=== PATIENT | male | born 1955 | race Caucasian/White ===

== ENCOUNTER 2018-08-11 08:00 | Inpatient (IN) | payer OTHER ==
--- NOTE | 2018-08-02 11:05 | HP ---
DATE OF ADMISSION: 08/11/2018 REASON FOR ADMISSION: Chronically incarcerated complex ventral hernia. BRIEF HISTORY: This is a 63-year-old gentleman with a long-standing history of having a complex, chronically incarcerated ventral hernia. The hernia has gotten much larger in the past three years and now he has discomfort in the area. He wishes to have this repaired. He has had no bouts of nausea or vomiting and no change in bowel habits. PAST MEDICAL HISTORY: Significant for hypertension, hypercholesterolemia, arthritic changes and psoriasis. PAST SURGICAL HISTORY: Bilateral knee replacements. ALLERGIES: None. SOCIAL HISTORY: The patient does not smoke. He drinks socially. MEDICATIONS: Rosuvastatin, losartan, HCTZ, omeprazole, aspirin and Symbicort. PHYSICAL EXAMINATION: Abdomen: Soft, nontender, nondistended. It is obese. The patient has a midline diastasis from the xiphoid to the umbilicus. He has a large, chronically incarcerated hernia in the midline. The actually defects are not truly appreciated due to their chronically incarcerated nature. The skin overlying the hernia is thinned at various points. IMPRESSION/PLAN: Complex chronically incarcerated ventral hernia. The patient and I had a long conversation regarding the various surgical approaches and since it has gotten bigger, I recommend that we repair this at this time. The patient will be scheduled for an open repair with mesh. We will do a posterior rectus approach and repair. At the time of surgery, if he requires component separation, this will be done as well. The indications, alternatives and complications of the procedure have been discussed. Questions have been answered. We will plan to obtain written consent on the day of surgery. Teresa BABB [id number] cc: José Antonio Maria M.D.
[2018-08-10 16:10] VITALS: BMI 33.9
[2018-08-11] MEDS ORDERED: TAMSULOSIN HCL 0.4 MG CAP ONE (08:37)
[2018-08-11] MEDS ORDERED: ceFAZolin SODIUM 1 GM VIAL ONE ×2 (08:37→09:48)
[2018-08-11] MEDS ORDERED: TAMSULOSIN HCL 0.4 MG CAP PO ONE (08:45)
[2018-08-11] MEDS ORDERED: ROPIVACAINE HCL 0.5% 30ML VIAL ONE (08:54)
[2018-08-11] MEDS ORDERED: MIDAZOLAM HCL 2 MG/2 ML SINGLE DOSE VIAL ONE ×2 (08:57)
[2018-08-11] MEDS ORDERED: PROPOFOL 20 ML ONE (09:46)
[2018-08-11] MEDS ORDERED: ONDANSETRON 4 MG/2 ML VIAL ONE (09:48)
[2018-08-11] MEDS ORDERED: DEXAMETHASONE SOD PHOSPHATE 4 MG/1 ML VIAL ONE (09:48)
[2018-08-11] MEDS ORDERED: LIDOCAINE HCL/PF 2% SDV 5ML VIAL ONE (09:48)
[2018-08-11] MEDS ORDERED: SODIUM CHLORIDE 0.9% P/F 10 ML VIAL IJ ONE (09:48)
[2018-08-11] MEDS ORDERED: KETAMINE HCL 200 MG/20 ML VIAL ONE (10:12)
[2018-08-11] MEDS ORDERED: ceFAZolin SODIUM 1 GM VIAL IVPB ONE (10:14)
[2018-08-11] MEDS ORDERED: ROCURONIUM BROMIDE 50 MG/5 ML VIAL ONE (10:39)
[2018-08-11] MEDS ORDERED: ePHEDrine SULFATE 50 MG/1 ML AMPULE ONE (10:56)
[2018-08-11] MEDS ORDERED: NEOSTIGMINE METHYLSULFATE 0.5 MG/1 ML - 10 ML MDV ONE (11:12)
[2018-08-11] MEDS ORDERED: KETOROLAC TROMETHAMINE 30 MG/1 ML VIAL ONE (11:13)
[2018-08-11] MEDS ORDERED: GLYCOPYRROLATE 0.2 MG/1 ML VIAL ONE (11:13)
[2018-08-11] MEDS ORDERED: MORPHINE SULFATE 8 MG/ML VIAL IVPB PRN (11:40)
[2018-08-11] MEDS ORDERED: ACETAMINOPHEN 325 MG TABLET (FP) PO PRN (11:40)
[2018-08-11] MEDS ORDERED: ONDANSETRON 4 MG/2 ML VIAL IVPUSH PRN (11:40)
[2018-08-11] MEDS ORDERED: SODIUM CHLORIDE 1,000 ML IV SCH (11:45)
--- NOTE | 2018-08-11 15:41 | OP ---
DATE OF OPERATION: 08/11/2018 PREOPERATIVE DIAGNOSIS: Chronically incarcerated complex ventral incisional hernia. POSTOPERATIVE DIAGNOSIS: Chronically incarcerated complex ventral incisional hernia. PROCEDURE: Open repair of complex chronically incarcerated ventral incisional hernia with mesh, bilateral component separation, partial omentectomy. SURGEON: Angel Mccray MD PSYCHOLOGY INSTRUCTOR: Paramjit Weiner DO ANESTHESIA: Miguelangel Powell DO, (general). ESTIMATED BLOOD LOSS: Minimal. SPECIMEN: Portion of omentum. INDICATION FOR PROCEDURE: This is a 63-year-old gentleman who has a large chronically incarcerated complex ventral hernia. It is causing him discomfort. He wishes to have this repaired. DESCRIPTION OF PROCEDURE: Patient identified and appropriately positioned on the operating room table. After placement on general anesthesia, the abdomen was prepped and draped in the usual sterile fashion with ChloraPrep. A midline incision was made and deepened through subcutaneous tissue. The hernia identified in the subcutaneous tissue and from the dermis with blunt dissection down to the level of the fascia. It was then circumferentially isolated. The sac opened and contained omentum. The sac was a slider. The omentum was serially clamped, divided, and tied with 3-0 Vicryl suture. The sac closed with a running 3-0 Vicryl suture. Next the fascia of the rectus muscle on the right identified. The posterior sheath divided. The muscle identified and off the posterior sheath bluntly out laterally. This was taken to the perforating vessels. Just medial to the perforating vessels, the fascia was scored with the cautery superiorly and inferiorly. The fascia was divided approximately 4 or 5 inches above the defect and inferiorly was done in a similar fashion. The myofascial separation allowed movement of the transversus medially without tension. This allowed also placement of the mesh beyond the rectus junction. Once the myofascial separation on the right was completed, a similar approach on the left was performed. The posterior rectus sheath divided sharply. The muscle off the sheath with blunt dissection up to the perforating vessels medially. The fascia just medial to the perforating vessels was scored with the cautery going north and south. Superiorly was taken approximately 4 to 5 inches above the defect and inferiorly was done in a similar fashion. Once the myofascial separation was completed on this side, the posterior sheath was then reapproximated with a running locking 3-0 Maxon suture. The sutures were placed in a 4:1 fashion. Next the defect measured and a large 20 x 20 piece of Versatex along with a 10 x 12 piece of ProGrip was used for the operative repair. The mesh was then sewn together in a hybrid fashion with interrupted 3-0 Vicryl sutures and paced in the retrorectus space and opened and fanned out to cover the defect. The mesh itself was anchored to the anterior abdominal wall with the AbsorbaTack. The mesh was irrigated. The operative field examined and noted to be hemostatic. The fascia overlying the mesh was then reapproximated by running No. 1 PDS suture. The subcutaneous space was irrigated, and a 10 flat RASHI placed and brought through a separate stab incision. The skin closed with yogi followed by Dermabond. The mesh used was Versatex 20 x 20, the anchoring system was AbsorbaTack. At the conclusion of this case, sponge and instrument counts were correct. ATTESTATION: A brief operative note was handwritten on the preprinted form. [facility] will be queried prior to giving any narcotics. Teresa BABB [id number] cc: MARCOS ANDRADE MD
[2018-08-11] MEDS: oxyCODONE HCL 5 MG TABLET PO PRN ×2 (18:09→22:24)
[2018-08-11] MEDS ORDERED: ROSUVASTATIN CA 10 MG TABLET (FP) ONE (21:22)
[2018-08-11] MEDS ORDERED: ROSUVASTATIN CA 20 MG TABLET (FP) PO SCH (22:00)
[2018-08-12] MEDS: oxyCODONE HCL 5 MG TABLET PO PRN ×2 (03:00→07:52)
[2018-08-12] MEDS ORDERED: PT OWN MED DRAWER 7, Y5N ONE (09:08)
[2018-08-12] MEDS ORDERED: HYDROCHLOROTHIAZIDE 25 MG TABLET (FP) PO SCH (10:00)
[2018-08-12] MEDS ORDERED: LOSARTAN POTASSIUM 50 MG TABLET (FP) PO SCH (10:00)
[2018-08-12] MEDS ORDERED: ENOXAPARIN NA (PORCINE) 40 MG/0.4 ML DISP.SYRIN SQ SCH (10:00)
[2018-08-12] MEDS ORDERED: ASPIRIN COATED 81 MG TABLET.EC PO SCH (10:00)
[2018-08-12] MEDS ORDERED: PANTOPRAZOLE SODIUM 40 MG VIAL IVPUSH SCH (10:00)
[2018-08-12 11:05] VITALS: BP 150/81; PULSE 80; TEMP 97.7
--- NOTE | 2018-08-12 12:59 | PATH ---
Surgical Pathology Report Patient Name: SHADE FOSTER Med. Rec. #: [id number] /Age/Gender: 1955 (Age: 63) / M Account: [id number] Location: [facility] MED/SURG Taken: 08/11/2018 Received: 08/11/2018 Reported: 08/12/2018 Physicians: Angel Mccray Specimen(s) Received PORTION OF OMENTUM AND HERNIA SAC Clinical History Complex ventral hernia Final Diagnosis HERNIA SAC AND OMENTUM, COMPLEX VENTRAL HERNIA REPAIR: FIBROMEMBRANOUS TISSUE COMPATIBLE WITH HERNIA SAC AND OMENTAL ADIPOSE TISSUE. Electronically Signed Stacia Gonzales M.D. Gross Description Received in formalin labeled "omentum and hernia sac," is a 6.0 x 4.5 x 2.4 cm pereira-brown portion of fibromembranous tissue with abundant attached fat, consistent with a hernia sac. Registered Nurse Ambulatory sections are submitted in one cassette. /08/11/201808/11/2018
--- NOTE | 2018-08-13 10:09 | DS ---
DATE OF ADMISSION: 08/11/2018 DATE OF DISCHARGE: 08/12/2018 ADMITTING DIAGNOSIS: Complex incarcerated ventral hernia with preexisting hypertension and hyperlipidemia. DISCHARGE DIAGNOSIS: Complex incarcerated ventral hernia with preexisting hypertension and hyperlipidemia. BRIEF HISTORY: This is a 63-year-old obese male who presented to [facility] for surgical management of a complex incarcerated ventral hernia. He underwent repair of this hernia utilizing component separation myofascial release and mesh. He also required a partial omentectomy due to the contents of the hernia. Please reference Dr. Angel Mccray's operative report for further details. He was admitted overnight. He has been able to void. At the time of discharge he is ambulating. He is tolerating a liquid diet. His Carroll-Beltrán drain has serosanguineous fluid within it. He will go home with his Carroll-Beltrán drain. He will go home on a regular diet. He will not lift anything more than 20 pounds. He will only sponge bathe. He will follow with Dr. Mccray next week to be evaluated for drain removal. He will empty his drain daily and record the amount or sooner if necessary. He will resume his usual home medications of aspirin, Nexium, hydrochlorothiazide, Cozaar, Crestor. He has a new prescription for Percocet which he will take as needed for pain. DO FRANCIS FAGAN/[id number]
== END 2018-08-12 11:55 | disposition home or self-care (01) | DRG 227 ==
LOC: JASUSAT 08:00 → JSAMEDAYSX 11:40 → J8W 15:25
PROVIDERS: ADMIT Obstetrics & Gynecology; ATTEND Surgery
PROC: 0DBU0ZZ Excision of Omentum, Open Approach (ICD-10-PCS; 2018-08-11)
PROC: 0WUF0JZ Supplement Abdominal Wall with Synthetic Substitute, Open Approach (ICD-10-PCS; principal; 2018-08-11 09:30)
DX: K43.0 Incisional hernia with obstruction, without gangrene (principal); I10 Essential (primary) hypertension; E78.00 Pure hypercholesterolemia, unspecified; L40.9 Psoriasis, unspecified; Z96.653 Presence of artificial knee joint, bilateral
CPT/HCPCS: 88305-TC; 94760; J7030

== ENCOUNTER 2021-03-09 12:30 | Emergency (ER) | payer OTHER ==
[2021-03-09 12:41] VITALS: TEMP 97.8; BMI 33.2
[2021-03-09] MEDS ORDERED: MECLIZINE HCL 25 MG TABLET (FP) PO ONE (13:23)
[2021-03-09] MEDS ORDERED: MECLIZINE HCL 25 MG TABLET (FP) ONE (13:26)
[2021-03-09 15:17] VITALS: BP 123/86; PULSE 79
== END 2021-03-09 15:40 | disposition home or self-care (01) ==
LOC: FER 12:30
DX: R42 Dizziness and giddiness (principal)
CPT/HCPCS: 70450-TC; 99284-25

== ENCOUNTER 2022-01-03 12:02 | Inpatient (IN) | payer OTHER ==
[2022-01-03] MEDS ORDERED: THIAMINE HCL 200 MG/2 ML VIAL IVPB ONE (13:13)
[2022-01-03] MEDS ORDERED: THIAMINE HCL 500 MG in SODIUM CHLORIDE 250 ML IVPB ONE (14:30)
[2022-01-03 14:49] LABS: ALBUMIN 3.7 g/dl (3.4-5.0); BLOOD UREA NITROGEN 14.1 mg/dL (7-18); CALCIUM 8.1 mg/dL (8.5-10.1); MAGNESIUM 1.8 mg/dL (1.8-2.4)
[2022-01-03 14:54] LABS: BILIRUBIN,TOTAL 1.2 mg/dL (0.2-1)
[2022-01-03 17:00] LABS: EOS % 4.1 % (0-4.5); HEMATOCRIT 35.2 % (35.4-49); HEMOGLOBIN 12.2 GM/dL (11.7-16.9); LYMPH % 17.6 % (8-40); MCH 33.9 pg (25.7-33.7); MCHC 34.7 g/dl (32.0-35.9); MEAN CELL VOLUME 97.7 fl (80-96); MEAN PLT VOLUME 7.8 fl (7.5-11.1); MONO % 11.5 % (3.8-10.2); NEUT % 65.8 % (42.8-82.8); PLATELET COUNT 156 10^3/uL (134-434); RDW 13.5 % (11.9-15.9); WHITE BLOOD COUNT 5.6 K/mm3 (4.0-10.0)
[2022-01-03] MEDS ORDERED: DEXTROSE 5%-0.45% SALINE 1,000 ML IV SCH (21:45)
[2022-01-03] MEDS ORDERED: ROSUVASTATIN CA 20 MG TABLET PO SCH (22:00)
[2022-01-03] MEDS ORDERED: ROSUVASTATIN CA 20 MG TABLET ONE (23:22)
[2022-01-03] MEDS ORDERED: chlordiazePOXIDE HCL 25 MG CAPSULE PO PRN (23:30)
[2022-01-04] MEDS: MUPIROCIN 2% TOPICAL OINTMENT FOR DECOLONIZATION NS SCH ×2 (01:45→09:35)
[2022-01-04] MEDS ORDERED: DEXTROSE 5%-0.45% SALINE 1,000 ML IV SCH (03:57)
[2022-01-04] MEDS ORDERED: ONDANSETRON 4 MG/2 ML VIAL IVPUSH PRN ×2 (06:11→18:09)
[2022-01-04 07:06] LABS: BASO % 0.9 % (0-2.0); EOS % 1.5 % (0-4.5); HEMATOCRIT 31.8 % (35.4-49); HEMOGLOBIN 11.4 GM/dL (11.7-16.9); LYMPH % 9.7 % (8-40); MCH 34.6 pg (25.7-33.7); MCHC 35.8 g/dl (32.0-35.9); MEAN CELL VOLUME 96.7 fl (80-96); MEAN PLT VOLUME 7.9 fl (7.5-11.1); MONO % 10.2 % (3.8-10.2); NEUT % 77.7 % (42.8-82.8); PLATELET COUNT 138 10^3/uL (134-434); RBC 3.29 M/mm3 (4.00-5.60); RDW 13.7 % (11.9-15.9); WHITE BLOOD COUNT 7.8 K/mm3 (4.0-10.0)
[2022-01-04 07:27] LABS: CALCIUM 8.1 mg/dL (8.5-10.1)
[2022-01-04 07:28] LABS: ALBUMIN 3.4 g/dl (3.4-5.0); BLOOD UREA NITROGEN 12.3 mg/dL (7-18); MAGNESIUM 1.4 mg/dL (1.8-2.4)
[2022-01-04 07:31] LABS: CREATININE 0.7 mg/dL (0.55-1.3); PHOSPHOROUS 2.8 mg/dL (2.5-4.9)
[2022-01-04 07:32] LABS: BILIRUBIN,TOTAL 1.6 mg/dL (0.2-1); TOT PROT 6.2 g/dl (6.4-8.2)
[2022-01-04] MEDS: chlordiazePOXIDE HCL 25 MG CAPSULE PO PRN ×2 (07:51→15:17)
[2022-01-04] MEDS ORDERED: HYDROCHLOROTHIAZIDE 12.5 MG CAPSULE (FP) PO SCH ×2 (10:00)
[2022-01-04] MEDS ORDERED: PANTOPRAZOLE 40 MG TABLET PO SCH ×2 (10:00)
[2022-01-04] MEDS ORDERED: THIAMINE HCL 200 MG/2 ML VIAL IVPB SCH (10:00)
[2022-01-04] MEDS ORDERED: PATIENT'S OWN MEDICATION (NON-FORMULARY) (Losartan/Hydrochlorothiazide [Losartan-Hctz 100- PO SCH (10:00)
[2022-01-04] MEDS ORDERED: FUROSEMIDE 40 MG TABLET (FP) PO SCH ×2 (10:00)
[2022-01-04] MEDS ORDERED: LOSARTAN POTASSIUM 50 MG TABLET PO SCH ×2 (10:00)
[2022-01-04] MEDS ORDERED: FOLIC ACID 1 MG TABLET (FP) PO SCH ×2 (10:00)
[2022-01-04] MEDS ORDERED: THIAMINE HCL 100 MG TABLET (FP) PO SCH (10:00)
[2022-01-04] MEDS: DEXTROSE 5%-0.45% SALINE 1,000 ML IV SCH ×2 (18:22→23:30)
[2022-01-04 19:37] LABS: URINE APPEARANCE CLEAR; URINE BILIRUBIN NEGATIVE (NEGATIVE); URINE COLOR YELLOW; URINE GLUCOSE (UA) NEGATIVE (NEGATIVE); URINE KETONE NEGATIVE (NEGATIVE); URINE LEUK ESTERASE NEGATIVE (NEGATIVE); URINE NITRITE NEGATIVE (NEGATIVE); URINE PROTEIN NEGATIVE (NEGATIVE)
[2022-01-04] MEDS ORDERED: CHLORHEXIDINE GLUCONATE 4% CLEANSER FOR DECOLONIZATION TP SCH ×2 (22:00)
[2022-01-04] MEDS ORDERED: MUPIROCIN 2% TOPICAL OINTMENT FOR DECOLONIZATION NS SCH (22:00)
[2022-01-04] MEDS ORDERED: ROSUVASTATIN CA 20 MG TABLET PO SCH (22:00)
[2022-01-04] MEDS ORDERED: ZOLPIDEM TARTRATE 5 MG TABLET PO SCH (22:00)
[2022-01-05] MEDS: ZOLPIDEM TARTRATE 5 MG TABLET PO SCH ×2 (00:05→22:18)
[2022-01-05] MEDS: chlordiazePOXIDE HCL 25 MG CAPSULE PO PRN ×2 (01:00→07:01)
[2022-01-05 08:36] LABS: BASO % 1.2 % (0-2.0); HEMATOCRIT 33.3 % (35.4-49); HEMOGLOBIN 11.6 GM/dL (11.7-16.9); LYMPH % 15.3 % (8-40); MCH 33.9 pg (25.7-33.7); MCHC 34.9 g/dl (32.0-35.9); MEAN CELL VOLUME 97.2 fl (80-96); MEAN PLT VOLUME 8.6 fl (7.5-11.1); MONO % 11.5 % (3.8-10.2); PLATELET COUNT 141 10^3/uL (134-434); RBC 3.43 M/mm3 (4.00-5.60); RDW 13.8 % (11.9-15.9)
[2022-01-05 09:09] LABS: CREATININE 0.8 mg/dL (0.55-1.3)
[2022-01-05 09:12] LABS: BLOOD UREA NITROGEN 9.2 mg/dL (7-18)
[2022-01-05 09:13] LABS: CALCIUM 8.3 mg/dL (8.5-10.1)
[2022-01-05 09:14] LABS: ALBUMIN 3.3 g/dl (3.4-5.0)
[2022-01-05] MEDS: FUROSEMIDE 40 MG TABLET (FP) PO SCH (09:15)
[2022-01-05] MEDS: metoPROLOL SUCCINATE 25 MG TAB.SR.24H (FP) PO SCH (09:15)
[2022-01-05] MEDS: PANTOPRAZOLE 40 MG TABLET PO SCH (09:15)
[2022-01-05] MEDS: THIAMINE HCL 200 MG/2 ML VIAL IVPB SCH (09:15)
[2022-01-05] MEDS: FOLIC ACID 1 MG TABLET (FP) PO SCH (09:15)
[2022-01-05] MEDS: HYDROCHLOROTHIAZIDE 12.5 MG CAPSULE (FP) PO SCH (09:15)
[2022-01-05] MEDS: LOSARTAN POTASSIUM 25 MG TABLET PO SCH (09:15)
[2022-01-05 09:18] LABS: BILIRUBIN,TOTAL 1.4 mg/dL (0.2-1); TOT PROT 6.3 g/dl (6.4-8.2)
[2022-01-05] MEDS ORDERED: BUDESONIDE/FORMETEROL FUMARATE 160/4.5 mcg INHALER IH SCH (10:00)
[2022-01-05] MEDS ORDERED: LOSARTAN POTASSIUM 25 MG TABLET PO SCH (10:00)
[2022-01-05] MEDS ORDERED: FUROSEMIDE 40 MG TABLET (FP) PO SCH (10:00)
[2022-01-05] MEDS ORDERED: metoPROLOL SUCCINATE 25 MG TAB.SR.24H (FP) PO SCH (10:00)
[2022-01-05] MEDS: BUDESONIDE/FORMETEROL FUMARATE 160/4.5 mcg INHALER IH SCH ×2 (10:23→22:34)
[2022-01-05] MEDS: DEXTROSE 5%-0.45% SALINE 1,000 ML IV SCH (14:47)
[2022-01-05] MEDS ORDERED: POTASSIUM CHLORIDE TABS 20 MEQ TABLET.ER (FP) PO ONE (17:03)
[2022-01-05] MEDS ORDERED: ROSUVASTATIN CA 10 MG TABLET PO SCH (22:00)
[2022-01-05] MEDS: ROSUVASTATIN CA 10 MG TABLET PO SCH (22:18)
[2022-01-06] MEDS: DEXTROSE 5%-0.45% SALINE 1,000 ML IV SCH ×2 (05:55→23:42)
[2022-01-06] MEDS: chlordiazePOXIDE HCL 25 MG CAPSULE PO PRN (08:47)
[2022-01-06] MEDS: PANTOPRAZOLE 40 MG TABLET PO SCH (10:30)
[2022-01-06] MEDS: HYDROCHLOROTHIAZIDE 12.5 MG CAPSULE (FP) PO SCH (10:30)
[2022-01-06] MEDS: LOSARTAN POTASSIUM 25 MG TABLET PO SCH (10:30)
[2022-01-06] MEDS: FOLIC ACID 1 MG TABLET (FP) PO SCH (10:30)
[2022-01-06] MEDS: FUROSEMIDE 40 MG TABLET (FP) PO SCH (10:30)
[2022-01-06] MEDS: metoPROLOL SUCCINATE 25 MG TAB.SR.24H (FP) PO SCH (10:30)
[2022-01-06] MEDS: THIAMINE HCL 200 MG/2 ML VIAL IVPB SCH (10:37)
[2022-01-06] MEDS: BUDESONIDE/FORMETEROL FUMARATE 160/4.5 mcg INHALER IH SCH ×2 (10:50→23:16)
[2022-01-06 11:08] LABS: EOS % 4.8 % (0-4.5); HEMATOCRIT 34.5 % (35.4-49); HEMOGLOBIN 11.8 GM/dL (11.7-16.9); LYMPH % 13.9 % (8-40); MCH 33.4 pg (25.7-33.7); MCHC 34.2 g/dl (32.0-35.9); MEAN CELL VOLUME 97.9 fl (80-96); MEAN PLT VOLUME 8.6 fl (7.5-11.1); MONO % 9.7 % (3.8-10.2); NEUT % 70.6 % (42.8-82.8); PLATELET COUNT 151 10^3/uL (134-434); RBC 3.52 M/mm3 (4.00-5.60); RDW 13.2 % (11.9-15.9); WHITE BLOOD COUNT 6.5 K/mm3 (4.0-10.0)
[2022-01-06 11:55] LABS: BLOOD UREA NITROGEN 7.4 mg/dL (7-18); CALCIUM 8.1 mg/dL (8.5-10.1)
[2022-01-06 11:56] LABS: ALBUMIN 3.4 g/dl (3.4-5.0)
[2022-01-06 11:58] LABS: BILIRUBIN,TOTAL 1.2 mg/dL (0.2-1); CREATININE 0.8 mg/dL (0.55-1.3)
[2022-01-06 12:00] LABS: TOT PROT 6.3 g/dl (6.4-8.2)
[2022-01-06] MEDS: ZOLPIDEM TARTRATE 5 MG TABLET PO SCH (23:15)
[2022-01-06] MEDS: ROSUVASTATIN CA 10 MG TABLET PO SCH (23:16)
[2022-01-07 09:01] LABS: BASO % 1.2 % (0-2.0); EOS % 5.1 % (0-4.5); HEMATOCRIT 32.3 % (35.4-49); HEMOGLOBIN 11.4 GM/dL (11.7-16.9); LYMPH % 14.2 % (8-40); MCH 34.4 pg (25.7-33.7); MCHC 35.4 g/dl (32.0-35.9); MEAN CELL VOLUME 97.1 fl (80-96); MONO % 12.1 % (3.8-10.2); NEUT % 67.4 % (42.8-82.8); PLATELET COUNT 163 10^3/uL (134-434); RBC 3.32 M/mm3 (4.00-5.60); RDW 13.4 % (11.9-15.9); WHITE BLOOD COUNT 7.3 K/mm3 (4.0-10.0)
[2022-01-07 09:24] LABS: CALCIUM 8.4 mg/dL (8.5-10.1)
[2022-01-07 09:25] LABS: ALBUMIN 3.4 g/dl (3.4-5.0); BLOOD UREA NITROGEN 8.6 mg/dL (7-18)
[2022-01-07 09:27] LABS: CREATININE 0.7 mg/dL (0.55-1.3)
[2022-01-07 09:29] LABS: TOT PROT 6.1 g/dl (6.4-8.2)
[2022-01-07] MEDS ORDERED: chlordiazePOXIDE HCL 10 MG CAPSULE PO SCH (10:00)
[2022-01-07] MEDS ORDERED: chlordiazePOXIDE HCL 25 MG CAPSULE PO PRN (10:09)
[2022-01-07] MEDS: metoPROLOL SUCCINATE 25 MG TAB.SR.24H (FP) PO SCH (10:29)
[2022-01-07] MEDS: BUDESONIDE/FORMETEROL FUMARATE 160/4.5 mcg INHALER IH SCH ×2 (10:29→23:11)
[2022-01-07] MEDS: FOLIC ACID 1 MG TABLET (FP) PO SCH (10:29)
[2022-01-07] MEDS: LOSARTAN POTASSIUM 25 MG TABLET PO SCH (10:29)
[2022-01-07] MEDS: FUROSEMIDE 40 MG TABLET (FP) PO SCH (10:29)
[2022-01-07] MEDS: PANTOPRAZOLE 40 MG TABLET PO SCH (10:29)
[2022-01-07] MEDS: HYDROCHLOROTHIAZIDE 12.5 MG CAPSULE (FP) PO SCH (10:29)
[2022-01-07] MEDS: THIAMINE HCL 200 MG/2 ML VIAL IVPB SCH (10:48)
[2022-01-07] MEDS ORDERED: ACETAMINOPHEN 325 MG TABLET (FP) PO ONE (12:15)
[2022-01-07] MEDS ORDERED: POTASSIUM CHLORIDE TABS 20 MEQ TABLET.ER (FP) PO ONE (12:15)
[2022-01-07] MEDS: THIAMINE HCL 100 MG TABLET (FP) PO SCH (12:58)
[2022-01-07] MEDS: chlordiazePOXIDE HCL 25 MG CAPSULE PO SCH ×2 (17:13→23:11)
[2022-01-07] MEDS: ZOLPIDEM TARTRATE 5 MG TABLET PO SCH (23:11)
[2022-01-07] MEDS: ROSUVASTATIN CA 10 MG TABLET PO SCH (23:11)
[2022-01-08] MEDS: chlordiazePOXIDE HCL 25 MG CAPSULE PO SCH ×2 (05:45→10:36)
[2022-01-08] MEDS: LOSARTAN POTASSIUM 25 MG TABLET PO SCH (09:44)
[2022-01-08] MEDS: HYDROCHLOROTHIAZIDE 12.5 MG CAPSULE (FP) PO SCH (09:44)
[2022-01-08] MEDS: FUROSEMIDE 40 MG TABLET (FP) PO SCH (09:44)
[2022-01-08] MEDS: metoPROLOL SUCCINATE 25 MG TAB.SR.24H (FP) PO SCH (09:44)
[2022-01-08] MEDS: THIAMINE HCL 100 MG TABLET (FP) PO SCH (09:44)
[2022-01-08] MEDS: PANTOPRAZOLE 40 MG TABLET PO SCH (09:44)
[2022-01-08] MEDS: FOLIC ACID 1 MG TABLET (FP) PO SCH (09:44)
[2022-01-08] MEDS: BUDESONIDE/FORMETEROL FUMARATE 160/4.5 mcg INHALER IH SCH ×2 (09:45→22:13)
[2022-01-08 10:26] LABS: ALBUMIN 3.6 g/dl (3.4-5.0); BLOOD UREA NITROGEN 7.6 mg/dL (7-18)
[2022-01-08 10:29] LABS: CREATININE 0.8 mg/dL (0.55-1.3)
[2022-01-08 10:31] LABS: TOT PROT 6.8 g/dl (6.4-8.2)
[2022-01-08 10:32] LABS: BILIRUBIN,TOTAL 1.2 mg/dL (0.2-1)
[2022-01-08 14:16] VITALS: BMI 31.0
[2022-01-08] MEDS: chlordiazePOXIDE HCL 10 MG CAPSULE PO SCH ×2 (17:25→22:12)
[2022-01-08] MEDS: ROSUVASTATIN CA 10 MG TABLET PO SCH (22:12)
[2022-01-08] MEDS: ZOLPIDEM TARTRATE 5 MG TABLET PO SCH (22:13)
[2022-01-09] MEDS ORDERED: chlordiazePOXIDE HCL 25 MG CAPSULE PO SCH (05:00)
[2022-01-09] MEDS: chlordiazePOXIDE HCL 10 MG CAPSULE PO SCH ×2 (05:47→11:12)
[2022-01-09] MEDS: HYDROCHLOROTHIAZIDE 12.5 MG CAPSULE (FP) PO SCH (11:09)
[2022-01-09] MEDS: PANTOPRAZOLE 40 MG TABLET PO SCH (11:09)
[2022-01-09] MEDS: LOSARTAN POTASSIUM 25 MG TABLET PO SCH (11:09)
[2022-01-09] MEDS: FOLIC ACID 1 MG TABLET (FP) PO SCH (11:09)
[2022-01-09] MEDS: FUROSEMIDE 40 MG TABLET (FP) PO SCH (11:09)
[2022-01-09] MEDS: BUDESONIDE/FORMETEROL FUMARATE 160/4.5 mcg INHALER IH SCH ×2 (11:10→21:55)
[2022-01-09] MEDS: THIAMINE HCL 100 MG TABLET (FP) PO SCH (11:10)
[2022-01-09] MEDS: metoPROLOL SUCCINATE 25 MG TAB.SR.24H (FP) PO SCH (11:17)
[2022-01-09] MEDS ORDERED: traMADol HCL 50 MG TABLET PO PRN (15:36)
[2022-01-09] MEDS: ROSUVASTATIN CA 10 MG TABLET PO SCH (21:55)
[2022-01-09] MEDS: ZOLPIDEM TARTRATE 5 MG TABLET PO SCH (21:56)
[2022-01-10] MEDS ORDERED: chlordiazePOXIDE HCL 10 MG CAPSULE PO PRN
[2022-01-10] MEDS ORDERED: chlordiazePOXIDE HCL 10 MG CAPSULE PO SCH (05:00)
[2022-01-10 10:12] LABS: BASO % 1.1 % (0-2.0); EOS % 4.9 % (0-4.5); HEMOGLOBIN 11.8 GM/dL (11.7-16.9); LYMPH % 15.5 % (8-40); MCH 33.9 pg (25.7-33.7); MCHC 34.8 g/dl (32.0-35.9); MEAN CELL VOLUME 97.4 fl (80-96); MEAN PLT VOLUME 7.7 fl (7.5-11.1); MONO % 12.5 % (3.8-10.2); PLATELET COUNT 264 10^3/uL (134-434); RBC 3.49 M/mm3 (4.00-5.60); RDW 13.6 % (11.9-15.9); WHITE BLOOD COUNT 7.4 K/mm3 (4.0-10.0)
[2022-01-10] MEDS: PANTOPRAZOLE 40 MG TABLET PO SCH (10:12)
[2022-01-10] MEDS: FOLIC ACID 1 MG TABLET (FP) PO SCH (10:12)
[2022-01-10] MEDS: HYDROCHLOROTHIAZIDE 12.5 MG CAPSULE (FP) PO SCH (10:12)
[2022-01-10] MEDS: FUROSEMIDE 40 MG TABLET (FP) PO SCH (10:13)
[2022-01-10] MEDS: LOSARTAN POTASSIUM 25 MG TABLET PO SCH (10:13)
[2022-01-10] MEDS: THIAMINE HCL 100 MG TABLET (FP) PO SCH (10:13)
[2022-01-10] MEDS: metoPROLOL SUCCINATE 25 MG TAB.SR.24H (FP) PO SCH (10:13)
[2022-01-10] MEDS: BUDESONIDE/FORMETEROL FUMARATE 160/4.5 mcg INHALER IH SCH ×2 (10:21→21:33)
[2022-01-10 10:31] LABS: CALCIUM 8.2 mg/dL (8.5-10.1)
[2022-01-10 10:32] LABS: ALBUMIN 3.3 g/dl (3.4-5.0); BLOOD UREA NITROGEN 10.6 mg/dL (7-18)
[2022-01-10 10:35] LABS: CREATININE 0.9 mg/dL (0.55-1.3)
[2022-01-10 10:36] LABS: TOT PROT 6.4 g/dl (6.4-8.2)
[2022-01-10 10:37] LABS: BILIRUBIN,TOTAL 0.6 mg/dL (0.2-1)
[2022-01-10] MEDS: chlordiazePOXIDE HCL 10 MG CAPSULE PO SCH (16:42)
[2022-01-10] MEDS ORDERED: POTASSIUM CHLORIDE TABS 20 MEQ TABLET.ER (FP) PO ONE ×2 (19:24→21:30)
[2022-01-10] MEDS: ROSUVASTATIN CA 10 MG TABLET PO SCH (21:32)
[2022-01-10] MEDS: ZOLPIDEM TARTRATE 5 MG TABLET PO SCH (21:32)
[2022-01-11] MEDS ORDERED: chlordiazePOXIDE HCL 10 MG CAPSULE PO SCH (05:00)
[2022-01-11] MEDS: chlordiazePOXIDE HCL 10 MG CAPSULE PO SCH (06:06)
[2022-01-11] MEDS: LOSARTAN POTASSIUM 25 MG TABLET PO SCH (10:07)
[2022-01-11] MEDS: FOLIC ACID 1 MG TABLET (FP) PO SCH (10:07)
[2022-01-11] MEDS: PANTOPRAZOLE 40 MG TABLET PO SCH (10:08)
[2022-01-11] MEDS: HYDROCHLOROTHIAZIDE 12.5 MG CAPSULE (FP) PO SCH (10:08)
[2022-01-11] MEDS: FUROSEMIDE 40 MG TABLET (FP) PO SCH (10:08)
[2022-01-11] MEDS: metoPROLOL SUCCINATE 25 MG TAB.SR.24H (FP) PO SCH (10:09)
[2022-01-11] MEDS: THIAMINE HCL 100 MG TABLET (FP) PO SCH (10:09)
[2022-01-11] MEDS: BUDESONIDE/FORMETEROL FUMARATE 160/4.5 mcg INHALER IH SCH (10:45)
[2022-01-11 11:10] LABS: BLOOD UREA NITROGEN 12.1 mg/dL (7-18)
[2022-01-11 11:11] LABS: ALBUMIN 3.6 g/dl (3.4-5.0)
[2022-01-11 11:12] LABS: BILIRUBIN,TOTAL 0.7 mg/dL (0.2-1); CALCIUM 8.5 mg/dL (8.5-10.1); CREATININE 0.8 mg/dL (0.55-1.3); TOT PROT 6.7 g/dl (6.4-8.2)
[2022-01-11 15:37] VITALS: BP 86/56; PULSE 84; TEMP 97.8
[2022-01-11] MEDS ORDERED: chlordiazePOXIDE HCL 10 MG CAPSULE PO ONE ×2 (17:00)
[2022-01-12] MEDS ORDERED: chlordiazePOXIDE HCL 10 MG CAPSULE PO ONE (05:00)
== END 2022-01-11 18:10 | disposition home or self-care (01) | DRG 83 ==
LOC: JER 12:02 → JERBED 15:02 → OBSVTOIN 15:02 → JICU 01-04 03:49 → J8W 01-04 17:56
PROVIDERS: ADMIT Internal Medicine; ATTEND Internal Medicine
PROC: HZ2ZZZZ Detoxification Services for Substance Abuse Treatment (ICD-10-PCS; principal; 2022-01-03)
DX: S06.5X9A Traumatic subdural hemorrhage with loss of consciousness of unspecified duration, initial encounter (principal); F10.239 Alcohol dependence with withdrawal, unspecified; I10 Essential (primary) hypertension; E78.5 Hyperlipidemia, unspecified; F10.220 Alcohol dependence with intoxication, uncomplicated; G62.1 Alcoholic polyneuropathy; G40.909 Epilepsy, unspecified, not intractable, without status epilepticus; W19.XXXA Unspecified fall, initial encounter; Y93.9 Activity, unspecified; Y92.89 Other specified places as the place of occurrence of the external cause; Y99.9 Unspecified external cause status
CPT/HCPCS: 36415; 70450-TC; 70551-TC; 71045-TC-FY; 80053; 81003; 82136; 82140; 82962; 83735; 83918; 84100; 84484; 85025; 93005; 93010; 97116-GP; 97161-GP; 99285-25; C9803-CS; U0003; U0005

== ENCOUNTER 2022-04-08 04:16 | Day surgery (SDC) | payer OTHER ==
[2022-04-04 14:34] VITALS: BMI 31.4
[2022-04-08] MEDS ORDERED: LIDOCAINE HCL/PF 1% SDV 5ML VIAL ONE (07:43)
[2022-04-08] MEDS ORDERED: DEXAMETHASONE SOD PHOSPHATE 10 MG/1 ML VIAL ONE (07:43)
[2022-04-08] MEDS ORDERED: LIDOCAINE HCL 1% PRESERVATIVE FREE - 30ML VIAL IJ ONE (11:44)
[2022-04-08] MEDS ORDERED: IOHEXOL 180 MG/1 ML ML IJ ONE (11:45)
[2022-04-08] MEDS ORDERED: DEXAMETHASONE SOD PHOSPHATE 10 MG/1 ML VIAL IVPUSH ONE (11:46)
[2022-04-08 12:22] VITALS: BP 144/77; PULSE 76; RESP 20; TEMP 98.2
== END 2022-04-08 12:30 | disposition home or self-care (01) ==
LOC: JASU-SURG 04:16
PROVIDERS: ATTEND Pain Medicine Pain Medicine
PROC: 3E0R33Z Introduction of Anti-inflammatory into Spinal Canal, Percutaneous Approach (ICD-10-PCS; 2022-04-08)
PROC: B01BYZZ Fluoroscopy of Spinal Cord using Other Contrast (ICD-10-PCS; 2022-04-08)
PROC: 3E0R3BZ Introduction of Anesthetic Agent into Spinal Canal, Percutaneous Approach (ICD-10-PCS; principal; 2022-04-08 11:30)
DX: M54.16 Radiculopathy, lumbar region (principal); M48.061 Spinal stenosis, lumbar region without neurogenic claudication; I10 Essential (primary) hypertension
CPT/HCPCS: 76000-TC-FY; J1100

== ENCOUNTER 2022-08-25 16:35 | Inpatient (IN) | payer OTHER ==
[2022-08-25 20:52] LABS: BASO % 1.3 % (0-2.0); EOS % 0.7 % (0-4.5); HEMATOCRIT 38.4 % (35.4-49); HEMOGLOBIN 13.6 GM/dL (11.7-16.9); LYMPH % 20.3 % (8-40); MCH 35.6 pg (25.7-33.7); MCHC 35.4 g/dl (32.0-35.9); MEAN CELL VOLUME 100.6 fl (80-96); MEAN PLT VOLUME 8.3 fl (7.5-11.1); MONO % 13.8 % (3.8-10.2); NEUT % 63.9 % (42.8-82.8); PLATELET COUNT 98 10^3/uL (134-434); RBC 3.82 M/mm3 (4.00-5.60); RDW 13.5 % (11.9-15.9); WHITE BLOOD COUNT 5.4 K/mm3 (4.0-10.0)
[2022-08-25 21:10] LABS: ALBUMIN 3.5 g/dl (3.4-5.0); CALCIUM 7.8 mg/dL (8.5-10.1)
[2022-08-25 21:11] LABS: BLOOD UREA NITROGEN 14.2 mg/dL (7-18)
[2022-08-25 21:13] LABS: CREATININE 0.9 mg/dL (0.55-1.3)
[2022-08-25 21:15] LABS: BILIRUBIN,TOTAL 2.2 mg/dL (0.2-1); TOT PROT 6.8 g/dl (6.4-8.2)
[2022-08-25] MEDS ORDERED: SODIUM CHLORIDE 0.9% 500 ML INFUS.BAG IV ONE (22:11)
[2022-08-25] MEDS ORDERED: ONDANSETRON 4 MG/2 ML VIAL ONE (22:52)
[2022-08-25] MEDS ORDERED: ONDANSETRON 4 MG/2 ML VIAL IVPUSH ONE (22:53)
[2022-08-25] MEDS ORDERED: MAGNESIUM SULF 50% (8.12 MEQ/2 ML-1 GM VIAL) IVPB ONE (23:22)
[2022-08-25 23:36] LABS: MAGNESIUM 1.4 mg/dL (1.8-2.4)
[2022-08-25] MEDS ORDERED: MAGNESIUM SULFATE IN WATER 2 GM/50 ML IVPB IVPB ONE (23:37)
[2022-08-26] MEDS ORDERED: POTASSIUM CHLORIDE ORAL LIQUID 20 MEQ/15 ML ONE (00:01)
[2022-08-26] MEDS ORDERED: POTASSIUM CHLORIDE TABS 20 MEQ TABLET.ER (FP) PO ONE ×2 (00:09→23:59)
[2022-08-26 04:58] VITALS: BMI 30.9
[2022-08-26 07:05] LABS: BASO % 0.8 % (0-2.0); EOS % 0.6 % (0-4.5); HEMATOCRIT 38.2 % (35.4-49); HEMOGLOBIN 13.2 GM/dL (11.7-16.9); LYMPH % 13.2 % (8-40); MCH 35.4 pg (25.7-33.7); MCHC 34.6 g/dl (32.0-35.9); MEAN CELL VOLUME 102.2 fl (80-96); MONO % 15.3 % (3.8-10.2); NEUT % 70.1 % (42.8-82.8); PLATELET COUNT 76 10^3/uL (134-434); RBC 3.74 M/mm3 (4.00-5.60); RDW 13.4 % (11.9-15.9); WHITE BLOOD COUNT 5.4 K/mm3 (4.0-10.0)
[2022-08-26 07:28] LABS: CALCIUM 7.8 mg/dL (8.5-10.1)
[2022-08-26 07:29] LABS: ALBUMIN 3.4 g/dl (3.4-5.0); BLOOD UREA NITROGEN 13.9 mg/dL (7-18)
[2022-08-26 07:32] LABS: CREATININE 0.8 mg/dL (0.55-1.3)
[2022-08-26 07:33] LABS: TOT PROT 6.6 g/dl (6.4-8.2)
[2022-08-26 07:34] LABS: BILIRUBIN,TOTAL 2.4 mg/dL (0.2-1)
[2022-08-26] MEDS: PANTOPRAZOLE 40 MG TABLET PO SCH (10:36)
[2022-08-26] MEDS: LOSARTAN POTASSIUM 25 MG TABLET PO SCH (10:36)
[2022-08-26] MEDS: FUROSEMIDE 40 MG TABLET (FP) PO SCH (10:36)
[2022-08-26] MEDS: BUDESONIDE/FORMETEROL FUMARATE 160/4.5 mcg INHALER IH SCH (10:36)
[2022-08-26] MEDS: metoPROLOL SUCCINATE 25 MG TAB.SR.24H (FP) PO SCH (10:36)
[2022-08-26] MEDS: ENOXAPARIN NA (PORCINE) 40 MG/0.4 ML DISP.SYRIN SQ SCH (10:37)
[2022-08-26] MEDS ORDERED: POTASSIUM CHLORIDE ORAL LIQUID 20 MEQ/15 ML PO ONE (11:09)
[2022-08-26] MEDS ORDERED: SODIUM CHLORIDE 1,000 ML IV SCH (11:15)
[2022-08-26] MEDS ORDERED: MAGNESIUM SULF 50% (8.12 MEQ/2 ML-1 GM VIAL) IVPB ONE (11:30)
[2022-08-26 11:38] LABS: N-TERMINAL BNP 18.5 pg/ml (5-125)
[2022-08-26] MEDS ORDERED: ONDANSETRON 4 MG/2 ML VIAL IVPUSH PRN (11:41)
[2022-08-26] MEDS ORDERED: chlordiazePOXIDE HCL 25 MG CAPSULE PO SCH (14:00)
[2022-08-26] MEDS: chlordiazePOXIDE HCL 25 MG CAPSULE PO SCH ×2 (16:33→22:24)
[2022-08-26] MEDS: IBUPROFEN 400 MG TABLET (FP) PO PRN (20:14)
[2022-08-26 21:36] LABS: EPI CELLS 1 /uL (0-25.1); HYALINE CASTS 0 /uL (0-3.1); PH,URINE 5.5 (5.0-8.0); URINE APPEARANCE CLEAR; URINE BACTERIA 3 /uL (0-1359); URINE BILIRUBIN 2+ (NEGATIVE); URINE COLOR DK YELLOW; URINE GLUCOSE (UA) NEGATIVE (NEGATIVE); URINE KETONE 2+ (NEGATIVE); URINE LEUK ESTERASE NEGATIVE (NEGATIVE); URINE NITRITE NEGATIVE (NEGATIVE); URINE PROTEIN NEGATIVE (NEGATIVE); URINE RBC 98 /uL (0-23.9); URINE WBC 3 /uL (0-25.8)
[2022-08-27] MEDS: IBUPROFEN 400 MG TABLET (FP) PO PRN ×3 (05:35→22:34)
[2022-08-27] MEDS: chlordiazePOXIDE HCL 25 MG CAPSULE PO SCH ×4 (05:42→22:24)
[2022-08-27 08:16] LABS: BASO % 1.2 % (0-2.0); EOS % 1.9 % (0-4.5); HEMATOCRIT 35.3 % (35.4-49); HEMOGLOBIN 12.5 GM/dL (11.7-16.9); LYMPH % 14.4 % (8-40); MCH 35.9 pg (25.7-33.7); MCHC 35.4 g/dl (32.0-35.9); MEAN CELL VOLUME 101.5 fl (80-96); MEAN PLT VOLUME 8.9 fl (7.5-11.1); MONO % 15.6 % (3.8-10.2); NEUT % 66.9 % (42.8-82.8); PLATELET COUNT 70 10^3/uL (134-434); RBC 3.48 M/mm3 (4.00-5.60); RDW 13.8 % (11.9-15.9); WHITE BLOOD COUNT 3.4 K/mm3 (4.0-10.0)
[2022-08-27 08:40] LABS: ALBUMIN 3.2 g/dl (3.4-5.0); BLOOD UREA NITROGEN 11.6 mg/dL (7-18)
[2022-08-27 08:43] LABS: CREATININE 0.8 mg/dL (0.55-1.3)
[2022-08-27 08:44] LABS: BILIRUBIN,TOTAL 3.6 mg/dL (0.2-1); TOT PROT 6.2 g/dl (6.4-8.2)
[2022-08-27] MEDS: ENOXAPARIN NA (PORCINE) 40 MG/0.4 ML DISP.SYRIN SQ SCH (10:46)
[2022-08-27] MEDS: LOSARTAN POTASSIUM 25 MG TABLET PO SCH (10:47)
[2022-08-27] MEDS: PANTOPRAZOLE 40 MG TABLET PO SCH (10:47)
[2022-08-27] MEDS: metoPROLOL SUCCINATE 25 MG TAB.SR.24H (FP) PO SCH (10:47)
[2022-08-27] MEDS: BUDESONIDE/FORMETEROL FUMARATE 160/4.5 mcg INHALER IH SCH (10:47)
[2022-08-27] MEDS ORDERED: MAGNESIUM OXIDE 400 MG TABLET (FP) PO ONE (10:53)
[2022-08-27] MEDS ORDERED: MELATONIN 5 MG TABLETS PO ONE (21:15)
[2022-08-27] MEDS ORDERED: chlordiazePOXIDE HCL 10 MG CAPSULE PO ONE (21:45)
[2022-08-28] MEDS: IBUPROFEN 400 MG TABLET (FP) PO PRN ×3 (05:48→21:19)
[2022-08-28] MEDS: chlordiazePOXIDE HCL 25 MG CAPSULE PO SCH ×2 (05:49→10:39)
[2022-08-28 07:02] LABS: CALCIUM 8.4 mg/dL (8.5-10.1)
[2022-08-28 07:03] LABS: ALBUMIN 3.2 g/dl (3.4-5.0); BLOOD UREA NITROGEN 10.8 mg/dL (7-18); MAGNESIUM 1.6 mg/dL (1.8-2.4)
[2022-08-28 07:06] LABS: CREATININE 0.9 mg/dL (0.55-1.3)
[2022-08-28 07:08] LABS: BILIRUBIN,TOTAL 4.1 mg/dL (0.2-1); TOT PROT 6.1 g/dl (6.4-8.2)
[2022-08-28 08:23] LABS: BASO % 1.2 % (0-2.0); EOS % 4.6 % (0-4.5); HEMATOCRIT 36.4 % (35.4-49); HEMOGLOBIN 12.7 GM/dL (11.7-16.9); LYMPH % 16.7 % (8-40); MCH 35.3 pg (25.7-33.7); MCHC 34.8 g/dl (32.0-35.9); MEAN CELL VOLUME 101.4 fl (80-96); MEAN PLT VOLUME 8.9 fl (7.5-11.1); NEUT % 64.5 % (42.8-82.8); PLATELET COUNT 67 10^3/uL (134-434); RBC 3.59 M/mm3 (4.00-5.60); RDW 13.6 % (11.9-15.9); WHITE BLOOD COUNT 3.7 K/mm3 (4.0-10.0)
[2022-08-28] MEDS: PANTOPRAZOLE 40 MG TABLET PO SCH (09:10)
[2022-08-28] MEDS: metoPROLOL SUCCINATE 25 MG TAB.SR.24H (FP) PO SCH (09:10)
[2022-08-28] MEDS: LOSARTAN POTASSIUM 25 MG TABLET PO SCH (09:10)
[2022-08-28] MEDS: BUDESONIDE/FORMETEROL FUMARATE 160/4.5 mcg INHALER IH SCH (10:40)
[2022-08-28] MEDS ORDERED: MAGNESIUM OXIDE 400 MG TABLET (FP) PO ONE (15:00)
[2022-08-28] MEDS ORDERED: MAGNESIUM 2GM/50ML STERILE WATER IVPB IVPB ONE (15:15)
[2022-08-28] MEDS ORDERED: chlordiazePOXIDE HCL 10 MG CAPSULE PO PRN (15:53)
[2022-08-28] MEDS: chlordiazePOXIDE HCL 10 MG CAPSULE PO SCH ×2 (16:58→22:04)
[2022-08-28] MEDS ORDERED: diphenhydrAMINE HCL 25 MG CAPSULE (FP) PO ONE (21:41)
[2022-08-29] MEDS ORDERED: diphenhydrAMINE HCL 25 MG CAPSULE (FP) PO ONE ×2 (00:15→22:00)
[2022-08-29] MEDS: chlordiazePOXIDE HCL 10 MG CAPSULE PO SCH ×2 (05:39→17:18)
[2022-08-29 07:38] LABS: BASO % 1.3 % (0-2.0); EOS % 4.8 % (0-4.5); HEMATOCRIT 35.7 % (35.4-49); HEMOGLOBIN 12.1 GM/dL (11.7-16.9); LYMPH % 13.5 % (8-40); MEAN CELL VOLUME 100.1 fl (80-96); MEAN PLT VOLUME 8.3 fl (7.5-11.1); MONO % 13.8 % (3.8-10.2); NEUT % 66.6 % (42.8-82.8); PLATELET COUNT 83 10^3/uL (134-434); RBC 3.56 M/mm3 (4.00-5.60); RDW 13.8 % (11.9-15.9); WHITE BLOOD COUNT 4.4 K/mm3 (4.0-10.0)
[2022-08-29 08:01] LABS: ALBUMIN 2.9 g/dl (3.4-5.0); BLOOD UREA NITROGEN 10.6 mg/dL (7-18); CALCIUM 8.7 mg/dL (8.5-10.1)
[2022-08-29 08:04] LABS: CREATININE 0.8 mg/dL (0.55-1.3)
[2022-08-29 08:05] LABS: TOT PROT 5.8 g/dl (6.4-8.2)
[2022-08-29 08:09] LABS: BILIRUBIN,TOTAL 2.6 mg/dL (0.2-1)
[2022-08-29] MEDS: metoPROLOL SUCCINATE 25 MG TAB.SR.24H (FP) PO SCH (10:16)
[2022-08-29] MEDS: PANTOPRAZOLE 40 MG TABLET PO SCH (10:16)
[2022-08-29] MEDS: BUDESONIDE/FORMETEROL FUMARATE 160/4.5 mcg INHALER IH SCH (10:16)
[2022-08-29] MEDS: LOSARTAN POTASSIUM 25 MG TABLET PO SCH (10:16)
[2022-08-29] MEDS: IBUPROFEN 400 MG TABLET (FP) PO PRN (20:17)
[2022-08-30] MEDS: chlordiazePOXIDE HCL 10 MG CAPSULE PO SCH (05:53)
[2022-08-30 07:36] LABS: BASO % 0.6 % (0-2.0); EOS % 5.2 % (0-4.5); HEMATOCRIT 34.8 % (35.4-49); LYMPH % 15.1 % (8-40); MCH 35.6 pg (25.7-33.7); MCHC 34.5 g/dl (32.0-35.9); MEAN CELL VOLUME 103.3 fl (80-96); MEAN PLT VOLUME 8.4 fl (7.5-11.1); MONO % 17.2 % (3.8-10.2); NEUT % 61.9 % (42.8-82.8); PLATELET COUNT 127 10^3/uL (134-434); RBC 3.37 M/mm3 (4.00-5.60); RDW 13.7 % (11.9-15.9); WHITE BLOOD COUNT 4.9 K/mm3 (4.0-10.0)
[2022-08-30 07:59] LABS: CALCIUM 8.9 mg/dL (8.5-10.1)
[2022-08-30 08:00] LABS: ALBUMIN 2.8 g/dl (3.4-5.0); BLOOD UREA NITROGEN 9.4 mg/dL (7-18)
[2022-08-30 08:03] LABS: BILIRUBIN,DIRECT 1.3 mg/dL (0.0-0.2); CREATININE 0.8 mg/dL (0.55-1.3)
[2022-08-30 08:04] LABS: BILIRUBIN,TOTAL 1.7 mg/dL (0.2-1); TOT PROT 5.6 g/dl (6.4-8.2)
[2022-08-30 09:03] VITALS: RESP 18
[2022-08-30] MEDS: LOSARTAN POTASSIUM 25 MG TABLET PO SCH (09:31)
[2022-08-30] MEDS: PANTOPRAZOLE 40 MG TABLET PO SCH (09:31)
[2022-08-30] MEDS: BUDESONIDE/FORMETEROL FUMARATE 160/4.5 mcg INHALER IH SCH (09:32)
[2022-08-30] MEDS: FUROSEMIDE 40 MG TABLET (FP) PO SCH (09:32)
[2022-08-30] MEDS: metoPROLOL SUCCINATE 25 MG TAB.SR.24H (FP) PO SCH (09:32)
[2022-08-30] MEDS: chlordiazePOXIDE 5 MG CAPSULE PO SCH ×2 (17:28→22:55)
[2022-08-30] MEDS: IBUPROFEN 400 MG TABLET (FP) PO PRN (17:38)
[2022-08-31] MEDS: chlordiazePOXIDE 5 MG CAPSULE PO SCH ×4 (05:24→22:01)
[2022-08-31] MEDS: LOSARTAN POTASSIUM 25 MG TABLET PO SCH (09:37)
[2022-08-31] MEDS: metoPROLOL SUCCINATE 25 MG TAB.SR.24H (FP) PO SCH (09:37)
[2022-08-31] MEDS: PANTOPRAZOLE 40 MG TABLET PO SCH (09:37)
[2022-08-31] MEDS: BUDESONIDE/FORMETEROL FUMARATE 160/4.5 mcg INHALER IH SCH (09:37)
[2022-08-31] MEDS: FUROSEMIDE 40 MG TABLET (FP) PO SCH (09:37)
[2022-09-01] MEDS: chlordiazePOXIDE 5 MG CAPSULE PO SCH ×2 (04:13→11:04)
[2022-09-01 05:21] VITALS: BP 141/74; PULSE 90; TEMP 98.4
[2022-09-01] MEDS: BUDESONIDE/FORMETEROL FUMARATE 160/4.5 mcg INHALER IH SCH (09:37)
[2022-09-01] MEDS: FUROSEMIDE 40 MG TABLET (FP) PO SCH (09:37)
[2022-09-01] MEDS: metoPROLOL SUCCINATE 25 MG TAB.SR.24H (FP) PO SCH (09:37)
[2022-09-01] MEDS: LOSARTAN POTASSIUM 25 MG TABLET PO SCH (09:37)
[2022-09-01] MEDS: PANTOPRAZOLE 40 MG TABLET PO SCH (09:37)
[2022-09-03 01:07] LABS: ALPHA 2 MACROGLOBULINS,QN 179 mg/dL (110-276); ALT(SGPT)P5P 67 IU/L (0-55); APOLIPOPROTEIN A-1. 98 mg/dL (101-178); CHOLESTEROL TOTAL 228 mg/dL (100-199); FIBROSIS SCORE- 0.85 (0.00-0.21); GLUCOSE SERUM 149 mg/dL (70-99); HEIGHT. 72 in (.); WEIGHT. 228 LBS (.)
== END 2022-09-01 13:43 | disposition home or self-care (01) | DRG 896 ==
LOC: JER 16:35 → JERBED 23:25 → INTOOBSV 23:25 → OBSVTOIN 08-26 02:37 → J4S 08-26 03:52
PROVIDERS: ADMIT Internal Medicine; ATTEND Internal Medicine
PROC: HZ2ZZZZ Detoxification Services for Substance Abuse Treatment (ICD-10-PCS; principal; 2022-08-25)
DX: F10.139 Alcohol abuse with withdrawal, unspecified (principal); U07.1 COVID-19; E87.6 Hypokalemia; R55 Syncope and collapse; G62.1 Alcoholic polyneuropathy; E78.5 Hyperlipidemia, unspecified; I10 Essential (primary) hypertension; E83.42 Hypomagnesemia; R79.89 Other specified abnormal findings of blood chemistry; E66.9 Obesity, unspecified; Z68.30 Body mass index [BMI] 30.0-30.9, adult; D69.6 Thrombocytopenia, unspecified
CPT/HCPCS: 0241U-QW; 36415; 70450-TC; 71046-TC-FY; 72125-TC; 74160-TC; 76705-TC; 80053; 80061; 81003; 82248; 82436; 83036; 83516; 83735; 83880; 83930; 83935; 84133; 84300; 84443; 84481; 84484; 85025; 86038; 86140; 86705; 86707; 86708; 86709; 87340; 87350; 87517; 87522; 93005; 93010; 93306-TC; 93880-TC; 97116-GP; 97161-GP; 99285-25; G0378; Q9967

== ENCOUNTER 2022-11-24 23:53 | Inpatient (IN) | payer OTHER ==
[2022-11-25] MEDS ORDERED: LORazepam 2 MG/ML SDV VIAL IVPUSH ONE ×2 (00:15→06:23)
[2022-11-25] MEDS ORDERED: FOLIC ACID INJECTION - 1 MG, THIAMINE HCL 100 MG, MULTIVIT INJECTION ADULT 10 ML in SOD... IVPB ONE (00:16)
[2022-11-25 00:39] LABS: EOS % 1.3 % (0-4.5); HEMATOCRIT 37.8 % (35.4-49); HEMOGLOBIN 13.3 GM/dL (11.7-16.9); LYMPH % 12.7 % (8-40); MCH 33.6 pg (25.7-33.7); MCHC 35.2 g/dl (32.0-35.9); MEAN CELL VOLUME 95.5 fl (80-96); MEAN PLT VOLUME 8.4 fl (7.5-11.1); MONO % 8.7 % (3.8-10.2); NEUT % 76.3 % (42.8-82.8); PLATELET COUNT 97 10^3/uL (134-434); RBC 3.96 M/mm3 (4.00-5.60); RDW 11.8 % (11.9-15.9); WHITE BLOOD COUNT 7.5 K/mm3 (4.0-10.0)
[2022-11-25 00:44] LABS: INR 1.24 (0.83-1.09); PROTHROMBIN TIME (PATIENT) 14.4 SEC (9.7-13.0)
[2022-11-25 00:55] LABS: CHLORIDE 94 mmol/L (98-107); SODIUM 134 mmol/L (136-145)
[2022-11-25 00:57] LABS: CALCIUM 7.3 mg/dL (8.5-10.1)
[2022-11-25 00:58] LABS: ALBUMIN 3.5 g/dl (3.4-5.0); CO2 28 mmol/L (21-32); GLUCOSE,RANDOM 142 mg/dL (74-106)
[2022-11-25 01:01] LABS: CREATININE 0.9 mg/dL (0.55-1.3); SGOT/AST 92 U/L (15-37); SGPT/ALT 37 U/L (13-61)
[2022-11-25 01:02] LABS: TOT PROT 6.9 g/dl (6.4-8.2)
[2022-11-25 01:03] LABS: BILIRUBIN,TOTAL 2.1 mg/dL (0.2-1)
[2022-11-25 01:04] LABS: ALK PHOS 113 U/L (45-117)
[2022-11-25 01:07] LABS: ANION GAP 11 MMOL/L (8-16); MAGNESIUM 0.9 mg/dL (1.8-2.4); POTASSIUM 2.9 mmol/L (3.5-5.1)
[2022-11-25] MEDS ORDERED: MAGNESIUM SULF 50% (8.12 MEQ/2 ML-1 GM VIAL) IVPB ONE (01:17)
[2022-11-25] MEDS ORDERED: POTASSIUM CHLORIDE TABS 20 MEQ TABLET.ER (FP) PO ONE ×3 (01:17→13:53)
[2022-11-25] MEDS ORDERED: MAGNESIUM SULFATE IN WATER 2 GM/50 ML IVPB IVPB ONE (01:51)
[2022-11-25 10:13] VITALS: BMI 27.6
[2022-11-25] MEDS ORDERED: chlordiazePOXIDE HCL 25 MG CAPSULE PO PRN ×2 (12:26→12:43)
[2022-11-25] MEDS ORDERED: chlordiazePOXIDE HCL 25 MG CAPSULE PO SCH ×2 (12:29→17:00)
[2022-11-25] MEDS ORDERED: chlordiazePOXIDE HCL 25 MG CAPSULE PO ONE (12:43)
[2022-11-25] MEDS: THIAMINE HCL 100 MG TABLET (FP) PO SCH (13:42)
[2022-11-25] MEDS: NAPH,MB-DB/K PH,MBDB POWDER PACKET PO SCH (13:42)
[2022-11-25] MEDS: FOLIC ACID 1 MG TABLET (FP) PO SCH (13:42)
[2022-11-25] MEDS: PANTOPRAZOLE 40 MG TABLET PO SCH (13:42)
[2022-11-25] MEDS: LOSARTAN POTASSIUM 25 MG TABLET PO SCH (13:42)
[2022-11-25] MEDS: metoPROLOL SUCCINATE 25 MG TAB.SR.24H (FP) PO SCH (13:42)
[2022-11-25] MEDS: DEXTROSE 5%-0.45% SALINE 1,000 ML IV SCH (13:43)
[2022-11-25] MEDS ORDERED: MAGNESIUM 2GM/50ML STERILE WATER IVPB IVPB ONE (14:00)
[2022-11-25 14:42] LABS: CHOLESTEROL 243 mg/dL (50-200)
[2022-11-25 14:43] LABS: LDL CHOLESTEROL (ONLY SJRH) 138 mg/dL (5-100)
[2022-11-25 14:45] LABS: HDL CHOLESTEROL 78 mg/dL (40-60)
[2022-11-25] MEDS: BUDESONIDE/FORMETEROL FUMARATE 160/4.5 mcg INHALER IH SCH (16:03)
[2022-11-25] MEDS: chlordiazePOXIDE HCL 25 MG CAPSULE PO SCH ×2 (16:04→22:27)
[2022-11-25 20:33] LABS: POTASSIUM 3.2 mmol/L (3.5-5.1)
[2022-11-25 20:34] LABS: CALCIUM 7.8 mg/dL (8.5-10.1)
[2022-11-25 20:38] LABS: CREATININE 0.7 mg/dL (0.55-1.3)
[2022-11-26] MEDS: chlordiazePOXIDE HCL 25 MG CAPSULE PO SCH ×4 (06:13→22:30)
[2022-11-26 08:04] LABS: BASO % 0.7 % (0-2.0); EOS % 3.8 % (0-4.5); HEMATOCRIT 34.8 % (35.4-49); HEMOGLOBIN 12.2 GM/dL (11.7-16.9); LYMPH % 13.4 % (8-40); MCH 33.7 pg (25.7-33.7); MEAN CELL VOLUME 96.3 fl (80-96); MEAN PLT VOLUME 8.6 fl (7.5-11.1); MONO % 11.5 % (3.8-10.2); NEUT % 70.6 % (42.8-82.8); PLATELET COUNT 118 10^3/uL (134-434); RBC 3.61 M/mm3 (4.00-5.60); RDW 11.8 % (11.9-15.9); WHITE BLOOD COUNT 7.2 K/mm3 (4.0-10.0)
[2022-11-26 08:29] LABS: POTASSIUM 3.1 mmol/L (3.5-5.1)
[2022-11-26 08:43] LABS: CALCIUM 7.8 mg/dL (8.5-10.1)
[2022-11-26 08:44] LABS: ALBUMIN 3.2 g/dl (3.4-5.0); BLOOD UREA NITROGEN 10.6 mg/dL (7-18)
[2022-11-26 08:47] LABS: CREATININE 0.6 mg/dL (0.55-1.3); PHOSPHOROUS 2.5 mg/dL (2.5-4.9)
[2022-11-26 08:48] LABS: BILIRUBIN,TOTAL 2.1 mg/dL (0.2-1); TOT PROT 6.4 g/dl (6.4-8.2)
[2022-11-26] MEDS ORDERED: POTASSIUM CHLORIDE ORAL LIQUID 20 MEQ/15 ML PO ONE (08:58)
[2022-11-26] MEDS: ENOXAPARIN NA (PORCINE) 40 MG/0.4 ML DISP.SYRIN SQ SCH (10:01)
[2022-11-26] MEDS: PANTOPRAZOLE 40 MG TABLET PO SCH (10:02)
[2022-11-26] MEDS: KCL 10 MEQ IVPB 10 MEQ/100 ML INFUS.BAG IVPB SCH ×3 (10:02→13:11)
[2022-11-26] MEDS: NAPH,MB-DB/K PH,MBDB POWDER PACKET PO SCH (10:02)
[2022-11-26] MEDS: LOSARTAN POTASSIUM 25 MG TABLET PO SCH (10:02)
[2022-11-26] MEDS: FUROSEMIDE 40 MG TABLET (FP) PO SCH (10:02)
[2022-11-26] MEDS: THIAMINE HCL 100 MG TABLET (FP) PO SCH (10:02)
[2022-11-26] MEDS: metoPROLOL SUCCINATE 25 MG TAB.SR.24H (FP) PO SCH (10:03)
[2022-11-26] MEDS: FOLIC ACID 1 MG TABLET (FP) PO SCH (10:03)
[2022-11-26] MEDS: BUDESONIDE/FORMETEROL FUMARATE 160/4.5 mcg INHALER IH SCH (10:04)
[2022-11-26] MEDS: DEXTROSE 5%-0.45% SALINE 1,000 ML IV SCH (13:46)
[2022-11-27] MEDS: chlordiazePOXIDE HCL 25 MG CAPSULE PO SCH ×4 (05:18→22:04)
[2022-11-27 07:30] LABS: EOS % 4.9 % (0-4.5); HEMATOCRIT 33.9 % (35.4-49); LYMPH % 15.7 % (8-40); MCH 34.2 pg (25.7-33.7); MCHC 35.4 g/dl (32.0-35.9); MEAN CELL VOLUME 96.6 fl (80-96); MEAN PLT VOLUME 8.6 fl (7.5-11.1); MONO % 15.8 % (3.8-10.2); NEUT % 62.6 % (42.8-82.8); PLATELET COUNT 140 10^3/uL (134-434); RBC 3.51 M/mm3 (4.00-5.60); RDW 11.9 % (11.9-15.9); WHITE BLOOD COUNT 6.9 K/mm3 (4.0-10.0)
[2022-11-27 07:43] LABS: POTASSIUM 3.9 mmol/L (3.5-5.1)
[2022-11-27 07:50] LABS: CALCIUM 8.2 mg/dL (8.5-10.1)
[2022-11-27 07:51] LABS: ALBUMIN 3.1 g/dl (3.4-5.0); BLOOD UREA NITROGEN 8.4 mg/dL (7-18)
[2022-11-27 07:53] LABS: CREATININE 0.6 mg/dL (0.55-1.3)
[2022-11-27 07:55] LABS: BILIRUBIN,TOTAL 1.5 mg/dL (0.2-1)
[2022-11-27 07:56] LABS: TOT PROT 6.1 g/dl (6.4-8.2)
[2022-11-27] MEDS: FUROSEMIDE 40 MG TABLET (FP) PO SCH (09:23)
[2022-11-27] MEDS: FOLIC ACID 1 MG TABLET (FP) PO SCH (09:23)
[2022-11-27] MEDS: LOSARTAN POTASSIUM 25 MG TABLET PO SCH (09:23)
[2022-11-27] MEDS: metoPROLOL SUCCINATE 25 MG TAB.SR.24H (FP) PO SCH (09:23)
[2022-11-27] MEDS: THIAMINE HCL 100 MG TABLET (FP) PO SCH (09:23)
[2022-11-27] MEDS: PANTOPRAZOLE 40 MG TABLET PO SCH (09:23)
[2022-11-27] MEDS: ENOXAPARIN NA (PORCINE) 40 MG/0.4 ML DISP.SYRIN SQ SCH (09:23)
[2022-11-27] MEDS: NAPH,MB-DB/K PH,MBDB POWDER PACKET PO SCH (09:24)
[2022-11-27] MEDS: BUDESONIDE/FORMETEROL FUMARATE 160/4.5 mcg INHALER IH SCH (09:24)
[2022-11-27] MEDS: DEXTROSE 5%-0.45% SALINE 1,000 ML IV SCH (19:25)
[2022-11-28] MEDS ORDERED: chlordiazePOXIDE HCL 10 MG CAPSULE PO PRN
[2022-11-28] MEDS: chlordiazePOXIDE HCL 10 MG CAPSULE PO SCH ×4 (04:53→22:24)
[2022-11-28] MEDS: FUROSEMIDE 40 MG TABLET (FP) PO SCH (10:02)
[2022-11-28] MEDS: PANTOPRAZOLE 40 MG TABLET PO SCH (10:02)
[2022-11-28] MEDS: FOLIC ACID 1 MG TABLET (FP) PO SCH (10:02)
[2022-11-28] MEDS: NAPH,MB-DB/K PH,MBDB POWDER PACKET PO SCH (10:02)
[2022-11-28] MEDS: metoPROLOL SUCCINATE 25 MG TAB.SR.24H (FP) PO SCH (10:02)
[2022-11-28] MEDS: LOSARTAN POTASSIUM 25 MG TABLET PO SCH (10:02)
[2022-11-28] MEDS: ENOXAPARIN NA (PORCINE) 40 MG/0.4 ML DISP.SYRIN SQ SCH (10:02)
[2022-11-28] MEDS: THIAMINE HCL 100 MG TABLET (FP) PO SCH (10:02)
[2022-11-28] MEDS: BUDESONIDE/FORMETEROL FUMARATE 160/4.5 mcg INHALER IH SCH (10:03)
[2022-11-28] MEDS: DEXTROSE 5%-0.45% SALINE 1,000 ML IV SCH (12:55)
[2022-11-29] MEDS ORDERED: chlordiazePOXIDE HCL 10 MG CAPSULE PO SCH (05:00)
[2022-11-29 08:28] VITALS: RESP 18
[2022-11-29] MEDS: FUROSEMIDE 40 MG TABLET (FP) PO SCH (09:51)
[2022-11-29] MEDS: FOLIC ACID 1 MG TABLET (FP) PO SCH (09:51)
[2022-11-29] MEDS: ENOXAPARIN NA (PORCINE) 40 MG/0.4 ML DISP.SYRIN SQ SCH (09:51)
[2022-11-29] MEDS: THIAMINE HCL 100 MG TABLET (FP) PO SCH (09:51)
[2022-11-29] MEDS: metoPROLOL SUCCINATE 25 MG TAB.SR.24H (FP) PO SCH (09:51)
[2022-11-29] MEDS: PANTOPRAZOLE 40 MG TABLET PO SCH (09:51)
[2022-11-29] MEDS: NAPH,MB-DB/K PH,MBDB POWDER PACKET PO SCH (09:51)
[2022-11-29] MEDS: BUDESONIDE/FORMETEROL FUMARATE 160/4.5 mcg INHALER IH SCH (09:52)
[2022-11-29] MEDS: LOSARTAN POTASSIUM 25 MG TABLET PO SCH (09:52)
[2022-11-29 11:49] VITALS: BP 124/69; PULSE 86; TEMP 98.2
[2022-11-30] MEDS ORDERED: chlordiazePOXIDE HCL 10 MG CAPSULE PO ONE (05:00)
== END 2022-11-29 12:43 | disposition home or self-care (01) | DRG 897 ==
LOC: JER 23:53 → JERBED 11-25 04:24 → J4W 11-25 09:08
PROVIDERS: ADMIT Family Medicine Geriatric Medicine; ATTEND Family Medicine Geriatric Medicine
DX: F10.230 Alcohol dependence with withdrawal, uncomplicated (principal); E87.1 Hypo-osmolality and hyponatremia; I10 Essential (primary) hypertension; K21.9 Gastro-esophageal reflux disease without esophagitis; R55 Syncope and collapse; E78.5 Hyperlipidemia, unspecified; E87.6 Hypokalemia; E83.42 Hypomagnesemia; F41.9 Anxiety disorder, unspecified; G47.00 Insomnia, unspecified; R79.89 Other specified abnormal findings of blood chemistry; E87.8 Other disorders of electrolyte and fluid balance, not elsewhere classified; I45.10 Unspecified right bundle-branch block; D69.6 Thrombocytopenia, unspecified; K76.0 Fatty (change of) liver, not elsewhere classified; G62.1 Alcoholic polyneuropathy
CPT/HCPCS: 0241U-QW; 36415; 70450-TC; 71045-TC-FY; 72125-TC; 72170-TC-FY; 80048; 80053; 80061; 80307; 83735; 84100; 84484; 85025; 85610; 85730; 93005; 93010; 93880-TC; 99285-25

== ENCOUNTER 2023-04-19 19:31 | Inpatient (IN) | payer OTHER ==
[2023-04-19 20:02] VITALS: BMI 30.7
[2023-04-19] MEDS ORDERED: BISMUTH SUBSALICYLATE 524 MG/30 ML PO PRN (20:44)
[2023-04-19] MEDS ORDERED: BENZONATATE 200 MG CAPSULE PO PRN (20:44)
[2023-04-19] MEDS ORDERED: LOPERAMIDE HCL 2 MG CAPSULE PO PRN (20:44)
[2023-04-19] MEDS ORDERED: NALOXONE HCL (KLOXXADO) 8 MG SPRAY NS PRN (20:44)
[2023-04-19] MEDS ORDERED: IBUPROFEN 400 MG TABLET (FP) PO PRN (20:44)
[2023-04-19] MEDS ORDERED: guaiFENesin 600 MG TABLET.ER (FP) PO PRN (20:44)
[2023-04-19] MEDS ORDERED: MAG HYDROX/AL HYDROX/SIMETH 30 ML UNIT-DOSE CUP PO PRN (20:44)
[2023-04-19] MEDS ORDERED: NALOXONE HCL 0.4 MG/ML VIAL IM PRN (20:44)
[2023-04-19] MEDS ORDERED: MAGNESIUM HYDROX 2400MG/30ML ORAL SUSPENSION 30 ML CUP PO PRN (20:44)
[2023-04-19] MEDS ORDERED: ONDANSETRON *ODT* 4 MG TABLET SL PRN (20:44)
[2023-04-19] MEDS ORDERED: BENZOCAINE/MENTHOL (CHLORASEPTIC ) LOZENGE MM PRN (20:44)
[2023-04-19] MEDS ORDERED: POLYETHYLENE GLYCOL (HEALTHYLAX) 3350 17 GM PACKET PO PRN (20:44)
[2023-04-19] MEDS ORDERED: COLLOIDAL OATMEAL 1 BAR EACH TP PRN (20:58)
[2023-04-19] MEDS ORDERED: MELATONIN 5 MG TABLETS PO SCH (22:00)
[2023-04-19] MEDS: THIAMINE HCL 100 MG TABLET (FP) PO SCH (23:22)
[2023-04-20] MEDS ORDERED: cloNIDine HCL 0.1 MG TABLET PO ONE (07:30)
[2023-04-20] MEDS: BUDESONIDE/FORMETEROL FUMARATE 160/4.5 mcg INHALER IH SCH ×2 (10:37→22:10)
[2023-04-20] MEDS: LOSARTAN POTASSIUM 25 MG TABLET PO SCH (10:37)
[2023-04-20] MEDS: metoPROLOL SUCCINATE 25 MG TAB.SR.24H (FP) PO SCH (10:37)
[2023-04-20] MEDS: FUROSEMIDE 40 MG TABLET (FP) PO SCH (10:37)
[2023-04-20] MEDS: PRENATAL VITAMINS W/ FOLIC ACID TABLET (FP) PO SCH (10:37)
[2023-04-20] MEDS: PANTOPRAZOLE 40 MG TABLET PO SCH (10:37)
[2023-04-20] MEDS: chlordiazePOXIDE HCL 25 MG CAPSULE PO SCH ×3 (10:38→22:07)
[2023-04-20] MEDS: FLUOCINONIDE 0.05% CREAM (60 GM TUBE) TP SCH ×2 (11:00→22:07)
[2023-04-20 11:36] LABS: HEMOGLOBIN 12.7 GM/dL (11.7-16.9); MCHC 35.3 g/dl (32.0-35.9); MEAN CELL VOLUME 96.2 fl (80-96); MEAN PLT VOLUME 7.8 fl (7.5-11.1); PLATELET COUNT 217 10^3/uL (134-434); RBC 3.74 M/mm3 (4.00-5.60); RDW 12.4 % (11.9-15.9); WHITE BLOOD COUNT 4.6 K/mm3 (4.0-10.0)
[2023-04-20 11:40] LABS: ALBUMIN 3.8 g/dl (3.4-5.0); CALCIUM 8.4 mg/dL (8.5-10.1)
[2023-04-20 11:43] LABS: CREATININE 0.8 mg/dL (0.55-1.3)
[2023-04-20 11:45] LABS: BILIRUBIN,TOTAL 0.9 mg/dL (0.2-1); TOT PROT 7.3 g/dl (6.4-8.2)
[2023-04-20] MEDS: THIAMINE HCL 100 MG TABLET (FP) PO SCH (22:08)
[2023-04-20] MEDS: SUVOREXANT 10 MG TABLET PO PRN (22:53)
[2023-04-21] MEDS: chlordiazePOXIDE HCL 25 MG CAPSULE PO PRN (01:52)
[2023-04-21] MEDS: chlordiazePOXIDE HCL 25 MG CAPSULE PO SCH ×4 (05:25→22:18)
[2023-04-21] MEDS ORDERED: ALBUTEROL SO4 HFA INHALER IH PRN (08:39)
[2023-04-21] MEDS: PRENATAL VITAMINS W/ FOLIC ACID TABLET (FP) PO SCH (10:00)
[2023-04-21] MEDS: metoPROLOL SUCCINATE 25 MG TAB.SR.24H (FP) PO SCH (10:00)
[2023-04-21] MEDS: BUDESONIDE/FORMETEROL FUMARATE 160/4.5 mcg INHALER IH SCH ×2 (10:00→22:19)
[2023-04-21] MEDS: FUROSEMIDE 40 MG TABLET (FP) PO SCH (10:01)
[2023-04-21] MEDS: LOSARTAN POTASSIUM 25 MG TABLET PO SCH (10:01)
[2023-04-21] MEDS: FLUOCINONIDE 0.05% CREAM (60 GM TUBE) TP SCH ×2 (10:01→22:19)
[2023-04-21] MEDS: PANTOPRAZOLE 40 MG TABLET PO SCH (10:01)
[2023-04-21] MEDS: IBUPROFEN 600 MG TABLET (FP) PO PRN (17:27)
[2023-04-21] MEDS: THIAMINE HCL 100 MG TABLET (FP) PO SCH (22:19)
[2023-04-21] MEDS: SUVOREXANT 10 MG TABLET PO PRN (23:29)
[2023-04-22] MEDS: chlordiazePOXIDE HCL 25 MG CAPSULE PO PRN (02:54)
[2023-04-22] MEDS: chlordiazePOXIDE HCL 25 MG CAPSULE PO SCH ×4 (05:38→22:04)
[2023-04-22] MEDS: IBUPROFEN 600 MG TABLET (FP) PO PRN ×2 (05:39→22:41)
[2023-04-22] MEDS: PANTOPRAZOLE 40 MG TABLET PO SCH (10:09)
[2023-04-22] MEDS: PRENATAL VITAMINS W/ FOLIC ACID TABLET (FP) PO SCH (10:09)
[2023-04-22] MEDS: FUROSEMIDE 40 MG TABLET (FP) PO SCH (10:09)
[2023-04-22] MEDS: BUDESONIDE/FORMETEROL FUMARATE 160/4.5 mcg INHALER IH SCH ×2 (10:09→22:07)
[2023-04-22] MEDS: FLUOCINONIDE 0.05% CREAM (60 GM TUBE) TP SCH ×2 (10:10→22:07)
[2023-04-22] MEDS: LOSARTAN POTASSIUM 25 MG TABLET PO SCH (10:11)
[2023-04-22] MEDS: metoPROLOL SUCCINATE 25 MG TAB.SR.24H (FP) PO SCH (10:12)
[2023-04-22] MEDS ORDERED: SUVOREXANT 15 MG TABLET PO PRN (22:00)
[2023-04-22] MEDS: THIAMINE HCL 100 MG TABLET (FP) PO SCH (22:03)
[2023-04-23] MEDS ORDERED: chlordiazePOXIDE HCL 10 MG CAPSULE PO PRN
[2023-04-23] MEDS: chlordiazePOXIDE HCL 10 MG CAPSULE PO SCH ×4 (05:09→22:16)
[2023-04-23] MEDS: BUDESONIDE/FORMETEROL FUMARATE 160/4.5 mcg INHALER IH SCH ×2 (10:09→22:16)
[2023-04-23] MEDS: PANTOPRAZOLE 40 MG TABLET PO SCH (10:10)
[2023-04-23] MEDS: FUROSEMIDE 40 MG TABLET (FP) PO SCH (10:10)
[2023-04-23] MEDS: FLUOCINONIDE 0.05% CREAM (60 GM TUBE) TP SCH ×2 (10:10→22:17)
[2023-04-23] MEDS: metoPROLOL SUCCINATE 25 MG TAB.SR.24H (FP) PO SCH (10:10)
[2023-04-23] MEDS: LOSARTAN POTASSIUM 25 MG TABLET PO SCH (10:10)
[2023-04-23] MEDS: PRENATAL VITAMINS W/ FOLIC ACID TABLET (FP) PO SCH (10:10)
[2023-04-23] MEDS: THIAMINE HCL 100 MG TABLET (FP) PO SCH (22:16)
[2023-04-23] MEDS: SUVOREXANT 20 MG TABLET PO PRN (23:00)
[2023-04-24] MEDS: ACETAMINOPHEN 325 MG TABLET (FP) PO PRN ×2 (03:31→17:11)
[2023-04-24] MEDS: chlordiazePOXIDE HCL 10 MG CAPSULE PO SCH ×2 (05:44→17:08)
[2023-04-24] MEDS: PRENATAL VITAMINS W/ FOLIC ACID TABLET (FP) PO SCH (09:28)
[2023-04-24] MEDS: BUDESONIDE/FORMETEROL FUMARATE 160/4.5 mcg INHALER IH SCH ×2 (09:28→22:13)
[2023-04-24] MEDS: PANTOPRAZOLE 40 MG TABLET PO SCH (09:28)
[2023-04-24] MEDS: metoPROLOL SUCCINATE 25 MG TAB.SR.24H (FP) PO SCH (09:28)
[2023-04-24] MEDS: LOSARTAN POTASSIUM 25 MG TABLET PO SCH (09:28)
[2023-04-24] MEDS: FUROSEMIDE 40 MG TABLET (FP) PO SCH (09:28)
[2023-04-24] MEDS: FLUOCINONIDE 0.05% CREAM (60 GM TUBE) TP SCH ×2 (09:29→23:11)
[2023-04-24] MEDS: THIAMINE HCL 100 MG TABLET (FP) PO SCH (22:14)
[2023-04-24] MEDS: IBUPROFEN 600 MG TABLET (FP) PO PRN (22:15)
[2023-04-24] MEDS: SUVOREXANT 20 MG TABLET PO PRN (22:16)
[2023-04-25] MEDS: ACETAMINOPHEN 325 MG TABLET (FP) PO PRN (02:35)
[2023-04-25] MEDS ORDERED: chlordiazePOXIDE HCL 10 MG CAPSULE PO ONE (05:00)
[2023-04-25 06:20] VITALS: RESP 16
[2023-04-25 08:52] VITALS: BP 146/85; PULSE 83; TEMP 98.1
[2023-04-25] MEDS: LOSARTAN POTASSIUM 25 MG TABLET PO SCH (09:07)
[2023-04-25] MEDS: FUROSEMIDE 40 MG TABLET (FP) PO SCH (09:07)
[2023-04-25] MEDS: PRENATAL VITAMINS W/ FOLIC ACID TABLET (FP) PO SCH (09:07)
[2023-04-25] MEDS: PANTOPRAZOLE 40 MG TABLET PO SCH (09:07)
[2023-04-25] MEDS: metoPROLOL SUCCINATE 25 MG TAB.SR.24H (FP) PO SCH (09:07)
[2023-04-25] MEDS: BUDESONIDE/FORMETEROL FUMARATE 160/4.5 mcg INHALER IH SCH (09:08)
[2023-04-25] MEDS: FLUOCINONIDE 0.05% CREAM (60 GM TUBE) TP SCH (09:08)
== END 2023-04-25 09:25 | disposition home or self-care (01) | DRG 897 ==
LOC: YASAS 19:31 → Y6N 22:59
PROVIDERS: ADMIT Allergy & Immunology; ATTEND Surgery
PROC: HZ2ZZZZ Detoxification Services for Substance Abuse Treatment (ICD-10-PCS; principal; 2023-04-19)
DX: F10.230 Alcohol dependence with withdrawal, uncomplicated (principal); F10.280 Alcohol dependence with alcohol-induced anxiety disorder; F10.282 Alcohol dependence with alcohol-induced sleep disorder; G47.00 Insomnia, unspecified; E78.5 Hyperlipidemia, unspecified; I10 Essential (primary) hypertension; K21.9 Gastro-esophageal reflux disease without esophagitis; Z96.653 Presence of artificial knee joint, bilateral; Z99.89 Dependence on other enabling machines and devices; Z87.891 Personal history of nicotine dependence
CPT/HCPCS: 36415; 80053; 80307; 83036; 85027; 86780; 87635; 93005; 93010; 99282-25

== ENCOUNTER 2023-09-04 06:06 | Day surgery (SDC) | payer OTHER ==
[2023-08-31 14:37] VITALS: BMI 31.1
[2023-09-04] MEDS ORDERED: MIDAZOLAM HCL 2 MG/2 ML SINGLE DOSE VIAL ONE ×2 (07:12→07:49)
[2023-09-04] MEDS ORDERED: BUPIVACAINE HCL/EPINEPHRINE/PF 30 ML VIAL IJ ONE (07:15)
[2023-09-04] MEDS ORDERED: DEXAMETHASONE SOD PHOSPHATE/PF 10 MG/ML SDV ONE (07:18)
[2023-09-04] MEDS ORDERED: ROPIVACAINE HCL 0.5% 30ML VIAL ONE (07:18)
[2023-09-04] MEDS ORDERED: PROPOFOL 60 ML ONE (07:47)
[2023-09-04] MEDS ORDERED: PHENYLEPHRINE HCL 10 MG/1 ML SINGLE DOSE VIAL ONE (09:06)
[2023-09-04] MEDS ORDERED: ceFAZolin SODIUM 1 GM VIAL ONE (09:06)
[2023-09-04] MEDS ORDERED: ONDANSETRON 4 MG/2 ML VIAL ONE (09:06)
[2023-09-04] MEDS ORDERED: ONDANSETRON 4 MG/2 ML VIAL IVPUSH PRN (09:24)
[2023-09-04] MEDS ORDERED: LACTATED RINGERS SOLUTION 1,000 ML IV SCH (09:30)
[2023-09-04] MEDS ORDERED: ACETAMINOPHEN INJECTION 100 ML IVPB ONE (09:57)
[2023-09-04] MEDS: ACETAMINOPHEN 1000 MG/100 ML BAG IVPB ONE (09:57)
[2023-09-04 10:10] VITALS: RESP 18; TEMP 94
[2023-09-04 11:29] VITALS: BP 110/67; PULSE 68
== END 2023-09-04 11:07 | disposition home or self-care (01) ==
LOC: FASU 06:06
PROVIDERS: ATTEND Orthopaedic Surgery
PROC: 0LB14ZZ Excision of Right Shoulder Tendon, Percutaneous Endoscopic Approach (ICD-10-PCS; principal; 2023-09-04 08:08)
PROC: 0RNJ4ZZ Release Right Shoulder Joint, Percutaneous Endoscopic Approach (ICD-10-PCS; 2023-09-04 08:08)
PROC: 0LS30ZZ Reposition Right Upper Arm Tendon, Open Approach (ICD-10-PCS; 2023-09-04 08:08)
DX: M75.111 Incomplete rotator cuff tear or rupture of right shoulder, not specified as traumatic (principal); M75.51 Bursitis of right shoulder; M75.21 Bicipital tendinitis, right shoulder; M75.01 Adhesive capsulitis of right shoulder; M65.811 Other synovitis and tenosynovitis, right shoulder; S43.431D Superior glenoid labrum lesion of right shoulder, subsequent encounter; X58.XXXD Exposure to other specified factors, subsequent encounter; Y92.9 Unspecified place or not applicable; Y93.9 Activity, unspecified
CPT/HCPCS: 29823; 29824; 29826; 29827; 29828; C1713; 88304-TC; 94760; J0131